=== PATIENT | male | born 1975 | race American Indian/Alaskan Native ===

== ENCOUNTER 2020-02-15 17:04 | Emergency (ER) | payer SELFPAY ==
[2020-02-15] MEDS ORDERED: cloNIDine 0.2 MG TAB PO ONE (17:15)
[2020-02-15] MEDS ORDERED: OXYMETAZOLINE 0.05% NASAL SPRAY NS ONE (17:15)
--- NOTE | 2020-02-15 17:44 | Emergency Department Report ---
HPI - General Chief Complaint: Nosebleed Time Seen by Provider: 02/15/20 17:14 - HPI HPI: Room 25 The patient is a 44-year-old male present with a chief complaint of epistaxis. Patient states approximate 1 hour prior to arrival he noticed bleeding from his nose. Patient denies any preceding trauma. Patient states is not certain which side seems to be coming from. Patient states he does not suffer from frequent nosebleeds ED Past Medical Hx - Past Medical History Previous Medical History?: Yes Hx Hypertension: Yes - Surgical History Past Surgical History?: Yes Additional Surgical History: skin graft - Family History Family history: no significant - Social History Smoking Status: Current Every Day Smoker (1 pack/day) Substance Use Type: None (Denies illicit drug use), Alcohol (Daily) - Medications Home Medications: Home Medications Medication Instructions Recorded Confirmed Last Taken Type amLODIPine 10 mg PO DAILY #90 tab 02/15/20 Unknown Rx ED Review of Systems ROS: Stated complaint: NOSE BLEED Other details as noted in HPI Constitutional: no symptoms reported ENT: epistaxis Respiratory: no symptoms reported Physical Exam - Physical Exam Vital Signs: Vital Signs 02/15/20 17:05 Temperature 97.8 F Pulse Rate 114 H Respiratory 18 Rate Blood Pressure 180/140 O2 Sat by Pulse 96 Oximetry Physical Exam: GENERAL: The patient is well-developed well-nourished male lying on stretcher holding bloody towel to his nose. [] HEENT: Normocephalic. Atraumatic. Right nares filled with blood. No active source of bleeding visualized NECK: Trachea midline CHEST/LUNGS: There is no respiratory distress noted. SKIN: There is no diaphoresis. NEURO: The patient is awake, alert, and oriented. The patient is cooperative. The patient has normal speech MUSCULOSKELETAL: There is no evidence of acute injury. ED Course Vital Signs 02/15/20 17:05 Temperature 97.8 F Pulse Rate 114 H Respiratory 18 Rate Blood Pressure 180/140 O2 Sat by Pulse 96 Oximetry - Reevaluation(s) Reevaluation #1: 02/15/20 18:13 Anterior packing with gauze and oxymetazoline not effective. Patient continues to have epistaxis. This packing was removed and a rapid Rhino anterior- posterior was placed in the right nares Reevaluation #2: 02/15/20 19:08 Patient hemostatic. Does not feel blood running down his throat. Patient in no acute distress. Thrombocytopenia discussed with patient. Patient attributed to his alcohol consumption. Strong warnings given ED Medical Decision Making - Lab Data Result diagrams: 02/15/20 17:55 02/15/20 17:55 - Differential Diagnosis Epistaxis Critical care attestation.: If time is entered above; I have spent that time in minutes in the direct care of this critically ill patient, excluding procedure time. ED Disposition Clinical Impression: Epistaxis, Hypertension, Thrombocytopenia Disposition: TO HOME OR SELFCARE Is pt being admited?: No Does the pt Need Aspirin: No Condition: Stable Instructions: Hypertension (ED), Thrombocytopenia (ED) Additional Instructions: Return to the emergency department should you develop worsening symptoms, inability to tolerate food or liquids, high fever or any other concerns Prescriptions: amLODIPine 10 mg PO DAILY #90 tab Referrals: CHILO HARDY MD [Staff Physician] - [place]AL (Dr. Hardy is an sales representative leather goods (ear nose and throat doctor). Please follow-up with him for further evaluation) ROLANDO SEARS MD [Referring] - 2-3 Days (Dr. Sears is a learning and development consultant. Please follow-up with her for further evaluation of your low platelet count) [facility] [Provider Group] - 3-5 Days Time of Disposition: 19:23
[2020-02-15] MEDS ORDERED: WATER FOR INJ Sterile (PF) 10 ML ONE (18:05)
[2020-02-15 18:19] LABS: Basophils % (Auto) 0.6 % (0.0-1.8); Eosinophils % (Auto) 0.5 % (0.0-4.3); Hematocrit 39.8 % (35.5-45.6); Hemoglobin 13.6 gm/dl (11.8-15.2); Lymphocytes # (Auto) 1.5 K/mm3 (1.2-5.4); Lymphocytes % (Auto) 25.7 % (13.4-35.0); Mean Corpuscular HGB Conc 34 % (32-34); Mean Corpuscular Volume 97 fl (84-94); Monocytes # (Auto) 0.5 K/mm3 (0.0-0.8); Monocytes % (Auto) 8.7 % (0.0-7.3)
[2020-02-15 18:28] LABS: INR 0.92 (0.87-1.13)
[2020-02-15 18:29] LABS: Partial Thromboplastin Time 24.7 Sec. (24.2-36.6)
[2020-02-15 18:31] LABS: BUN/Creatinine Ratio 14; Blood Urea Nitrogen 19 mg/dL (9-20); Calcium 9.9 mg/dL (8.4-10.2); Hemolysis Index 10
[2020-02-15 18:50] LABS: Platelet Count 38 K/mm3 (140-440)
[2020-02-15 20:52] VITALS: BP 144/97
== END 2020-02-15 21:06 | disposition home or self-care (01) ==
LOC: ED 17:04
DX: R04.0 Epistaxis (principal); I10 Essential (primary) hypertension; D69.6 Thrombocytopenia, unspecified; F17.200 Nicotine dependence, unspecified, uncomplicated; Z79.899 Other long term (current) drug therapy
CPT/HCPCS: 36415; 80048; 85025; 85610; 85730; 96374; 99283